=== PATIENT | female | born 1950 | race Hispanic/Latino ===

== ENCOUNTER → 2017-12-09 | Outpatient (CLI) | payer MEDICARE ==
--- NOTE | 2017-12-29 08:52 | Diagnostic Imaging Report ---
#[id number] - [id number] #BILATERAL DIGITAL SCREENING MAMMOGRAM WITH CAD: 12/09/2017 No prior exams were available for comparison. Current study contains 4 films. The tissue of both breasts is predominantly fatty. Current study was also evaluated with a Computer Aided Detection (CAD) system. There are benign calcifications in both breasts. There also are benign lymph nodes in both breasts. There is a mole marker on the left breast. No significant masses, calcifications, or other findings are seen in either breast. IMPRESSION: BENIGN There is no mammographic evidence of malignancy. A 1 year screening mammogram is recommended. The patient will be notified by letter of the results. Karel muller/jessi:12/28/2017 14:54:02 Suggestion Clerk: Janelle GAUTHIER)(M), [facility] letter sent: Normal Exam Mammogram BI-RADS: 2 Benign
== END ==
LOC: MAMMO 14:11
PROVIDERS: ATTEND Family Medicine
DX: Z12.31 Encounter for screening mammogram for malignant neoplasm of breast (principal)
CPT/HCPCS: 77067

== ENCOUNTER → 2019-10-18 | Outpatient (CLI) | payer MEDICARE, OTHER ==
--- NOTE | 2019-10-18 09:23 | Diagnostic Imaging Report ---
EXAM: US ABDOMEN COMPLETE DATE: 10/18/2019 8:32 AM INDICATION: Abdominal pain COMPARISON: None TECHNIQUE: Transverse and longitudinal morin scale and color doppler sonographic images of the upper abdomen were obtained. FINDINGS: LIVER 14.6 cm in the right midclavicular line. Increased echogenicity of the liver with normal contour, no masses. SPLEEN 11.5 cm in maximum diameter. Normal echogenicity, no masses. GALLBLADDER Multiple shadowing gallstones in the gallbladder. No gallbladder distention, wall thickening, or pericholecystic fluid. Gallbladder wall measures 3 mm. BILE DUCTS No intra nor extra-hepatic biliary dilation. Common bile duct measures 3mm PANCREAS: Visualized portions are normal. RIGHT KIDNEY: 10.6 cm Echogenicity: Normal Collecting System: No hydronephrosis Stones: None Cyst/Mass: None LEFT KIDNEY: 13.3 cm Echogenicity: Normal Collecting System: No hydronephrosis Stones: None Cyst/Mass: None VESSELS: Aorta: Visualized portions are within normal size limits Inferior Vena Cava: Visualized portions are normal Main Portal Vein: 1.1 cm, normal size with hepatopetal flow. FREE FLUID: None IMPRESSION: Cholelithiasis without sonographic evidence of cholecystitis. Diffuse hepatic steatosis. Signed by: Kathy Montano MD on 10/18/2019 9:20 AM
== END ==
LOC: US 08:02
PROVIDERS: ATTEND Family Medicine
DX: R10.9 Unspecified abdominal pain (principal); K80.20 Calculus of gallbladder without cholecystitis without obstruction; K76.0 Fatty (change of) liver, not elsewhere classified
CPT/HCPCS: 76700

== ENCOUNTER → 2019-10-24 | Outpatient (CLI) | payer MEDICARE, OTHER ==
--- NOTE | 2019-10-24 18:54 | Diagnostic Imaging Report ---
Hepatobiliary Scan with Gallbladder Ejection Fraction Reason for exam: Abdominal pain Technique: Following intravenous administration of 6.7 millicuries of Tc-99m mebrofenin, dynamic images of the abdomen in the anterior projection were obtained through 48 minutes. Sincalide (CCK analog) 1.8 micrograms was administered intravenously over 30 minutes with additional imaging for determination of gallbladder ejection fraction. Discussion: Perfusion of the liver is normal. Extraction of tracer by the liver parenchyma is normal. Tracer appears promptly within the biliary tract. The gallbladder begins to fill at 32 minutes post injection of tracer and fills adequately. Tracer is seen in the small bowel by 17 minutes. There is no contractile response by the gallbladder to the pharmacologic dose of sincalide. No emptying of the gallbladder occurs during the 30 minute infusion. Impression: 1. Filling of the gallbladder excludes acute cystic duct obstruction/acute cholecystitis. 2. The gallbladder ejection fraction is undefined as there is no emptying of the gallbladder during the infusion of sincalide. This absence of a contractile response to sincalide supports the clinical diagnosis of chronic cholecystitis/gallbladder dyskinesia. Signed by: Dr. Janelle Martin M.D. on 10/24/2019 6:51 PM
== END ==
LOC: NM 12:51
PROVIDERS: ATTEND Family Medicine
DX: R10.9 Unspecified abdominal pain (principal); K82.8 Other specified diseases of gallbladder
CPT/HCPCS: 78227; A9537

== ENCOUNTER → 2019-11-10 | Day surgery (SDC) | payer MEDICARE, OTHER ==
[2019-11-07 11:34] LABS: BASOPHILS % 0.3 % (0.0-1.0); HEMATOCRIT 41.7 % (34.2-44.1); HEMOGLOBIN 13.5 g/dL (12.0-16.0); LYMPHOCYTES # (AUTO) 1.5 (1.0-3.2); LYMPHOCYTES % 22.7 % (18.0-39.1); MEAN CORPUSCULAR HEMOGLOBIN 28.2 pg (28-32); MEAN CORPUSCULAR HGB CONC 32.4 g/dL (31-35); MEAN CORPUSCULAR VOLUME 87.2 fL (81-99); MONOCYTES # (AUTO) 0.4 (0.2-0.8); MONOCYTES % 6.7 % (4.4-11.3); NEUTROPHILS # (AUTO) 4.5 (2.1-6.9); NEUTROPHILS % 69.8 % (38.7-80.0); PLATELET COUNT 261 x10e3/uL (140-360); RED BLOOD COUNT 4.78 x10e6/uL (3.6-5.1); RED CELL DISTRIBUTION WIDTH 13.2 % (11.7-14.4)
[2019-11-07 11:52] LABS: ALANINE AMINOTRANSFERASE 15 IU/L (0-55); ALBUMIN 4.3 g/dL (3.5-5.0); ALBUMIN/GLOBULIN RATIO 1.3 (0.8-2.0); ALKALINE PHOSPHATASE 68 IU/L (40-150); ANION GAP 15.1 mmol/L (8-16); BLOOD UREA NITROGEN 9 mg/dL (7-26); BUN/CREATININE RATIO 14 (6-25); CALCIUM 9.5 mg/dL (8.4-10.2); CARBON DIOXIDE 24 mmol/L (22-29); CHLORIDE 106 mmol/L (98-107); CREATININE, SERUM 0.64 mg/dL (0.57-1.11); EST GLOMERULAR FILTRATION RATE > 60 ML/MIN (60-); GLUCOSE 119 mg/dL (74-118); POTASSIUM 4.1 mmol/L (3.5-5.1); SODIUM 141 mmol/L (136-145)
--- NOTE | 2019-11-07 12:46 | Diagnostic Imaging Report ---
Exam: CHEST 2 VIEWS Date: 11/07/2019 12:41 PM INDICATION: ^[id number] ^1213 ^PRE OP Comparison: None FINDINGS: Lines/Tubes:None Lungs:The lungs are well inflated. No focal consolidation or pulmonary edema. Pleura:No pleural effusion. No pneumothorax. Heart/Mediastinum:The cardiomediastinal silhouette is normal in size and contour. Bones/Soft Tissues: No acute osseous abnormality. Moderate to severe multilevel degenerative changes of the midthoracic spine are noted. Upper abdomen: Unremarkable. IMPRESSION: Negative for acute intrathoracic process. Signed by: Mik Bone MD on 11/07/2019 12:43 PM
[~2019-11-10] MED LIST: AMLODIPINE BESY10 MG PO; BUPIVACAINE 0.25% 30ML SDV INJ ONE; CARVEDILOL3.125 MG PO; CEFAZOLIN SOD 1 GM VIAL ONE; CRESTOR10 MG PO; DEXAMETHASONE SOD PHOS INJ 4 MG/ML VIAL ONE; FENTANYL CITRATE/PF 100MCG/2 ML INJ ONE; GLIPIZIDE ER5 MG PO; GLYCOPYRROLATE INJ 0.2 MG/ML VIAL ONE; HYDRALAZINE HCL25 MG PO; HYDROGEN PEROXIDE 120 ML BTL ONE; KETOROLAC TROMETHAMINE 30 MG/ML VIAL ONE; LABETALOL HCL 5 MG/ML 20ML VIAL ONE; LIDOCAINE 1% W/EPINEPHRINE 20 ML VIAL ONE; LIDOCAINE HCL 2% LOCAL INJ 5 ML SDV VIAL INJ ONE; LOSARTAN POTAS100 MG PO; MEPERIDINE HCL INJ 25 MG/ML VIAL ONE; METFORMIN HCL500 MG PO; MIDAZOLAM HCL 2 MG/2 ML VIAL ONE; NEOSTIGMINE 1 MG/ML 10ML VIAL ONE; OMEPRAZOLE40 MG PO; ONDANSETRON HCL INJ 2MG/ML 2ML 2 MG/ML VIAL ONE; PROPOFOL IV EMULSION 10 MG/ML 20 ML VIAL ONE; ROCURONIUM BROMIDE 10 MG/ML 5ML VIAL IV ONE; SERTRALINE HCL50 MG PO; SEVOFLURANE INHAL SOLN 250 ML PEN BTL ONE; ULTRACET TABLE1 EACH PO; ZOFRAN4 MG SL
--- NOTE | 2019-11-10 12:55 | Operative Report ---
DATE OF PROCEDURE: 11/10/2019 SURGEON: Tony Peters MD PREOPERATIVE DIAGNOSES: Cholelithiasis, chronic cystitis. POSTOPERATIVE DIAGNOSES: Cholelithiasis, chronic cystitis. PROCEDURE PERFORMED: Laparoscopic cholecystectomy. FISHER DIVING: LEXY Dangelo. ESTIMATED BLOOD LOSS: Minimal. DRAINS: None. COMPLICATIONS: None. INDICATION AND FINDINGS: A 69-year-old female, who has been complaining of fatty food intolerance for several weeks. She has gallstones and a zero ejection fraction. Liver function tests were normal. There was no history of jaundice. INTRAOPERATIVE FINDINGS: Cholelithiasis, chronic cholecystitis. No ductal dilatation. DESCRIPTION OF PROCEDURE: With the patient lying on the operative table in the supine position after administration of general anesthesia, she was prepped and draped for laparoscopic cholecystectomy. The procedure was begun by establishing the pneumoperitoneum in the right upper quadrant midclavicular line because of previous . Pneumoperitoneum was insufflated to 15 mm of pressure and then the 5 mm camera was placed in that location. Under direct vision, we placed a 10/11 trocar in the umbilical port and then a subxiphoid port using 10/11 trocar was placed and then a right anterior axillary line trocar 5 mm size, which was also placed. The gallbladder was then retracted cephalad. Adhesions to the right upper quadrant and gallbladder were sharply lysed, exposing the gallbladder in the hepatoduodenal ligament in the neck. The cystic duct was identified, traced down to the common bile duct junction, which was in 360 degrees circumferentially. After we did that, we identified the cystic artery and transected it between titanium clips also. Then, we took down the gallbladder from the liver bed using electrocautery dissection. Bleeding points were cauterized as they were encountered. The gallbladder was detached and removed through the umbilical port. There was some bleeding coming from the subxiphoid port dripping blood and at this point, we went ahead and enlarged the subxiphoid incision and then cauterized the muscular bleeder and then we closed the wound with 3 interrupted 0 Vicryl to further reinforce the bleeder and the bleeder controlled. After we did that, we placed an extra 5 mm trocar in the left upper quadrant and then reinspected the operative field. There was absolutely no bleeding. Everything was dry. We placed some Surgicel in the gallbladder bed fossa. After we irrigated the right upper quadrant to ascertain that there was no bleeding and no bowel injury, we released the pneumoperitoneum and then closed the umbilical fascia with 0 Vicryl. The subcutaneous tissue was closed using 0 Vicryl also and the skin of all the ports was using fidelina and they were all infiltrated with 0.25% Marcaine with epinephrine. Sterile dressing was applied. The patient tolerated the procedure well and taken to recovery room in stable condition. MD ISIDRO Rviera/MODL /[id number]
[2019-11-10 14:05] VITALS: BP 127/77
== END | disposition home or self-care (01) ==
LOC: OR 07:00
PROVIDERS: ATTEND Surgery
DX: K80.10 Calculus of gallbladder with chronic cholecystitis without obstruction (principal); K82.8 Other specified diseases of gallbladder; E66.9 Obesity, unspecified; E11.9 Type 2 diabetes mellitus without complications; I10 Essential (primary) hypertension; E78.5 Hyperlipidemia, unspecified; M54.9 Dorsalgia, unspecified; M19.90 Unspecified osteoarthritis, unspecified site; K21.9 Gastro-esophageal reflux disease without esophagitis; K44.9 Diaphragmatic hernia without obstruction or gangrene; I49.9 Cardiac arrhythmia, unspecified; F41.9 Anxiety disorder, unspecified; Z88.2 Allergy status to sulfonamides; Z01.810 Encounter for preprocedural cardiovascular examination; Z01.812 Encounter for preprocedural laboratory examination; Z01.818 Encounter for other preprocedural examination; Z11.59 Encounter for screening for other viral diseases; Z79.84 Long term (current) use of oral hypoglycemic drugs
CPT/HCPCS: 36415 ×2; 47562; 71046; 80053; 82948; 85025; 88304; 93005; C1766; J0690; J1100; J1885; J2001; J2175; J2405; J2704; J2710; J3490; U0002; J2250; J3010

== ENCOUNTER 2019-11-17 12:42 | Emergency (ER) | payer MEDICARE, OTHER ==
[~2019-11-17] VITALS: Ht 162.6 cm; Wt 108.9 kg
[~2019-11-17 12:42] MED LIST changes: -BUPIVACAINE 0.25% 30ML SDV INJ ONE; -CEFAZOLIN SOD 1 GM VIAL ONE; -DEXAMETHASONE SOD PHOS INJ 4 MG/ML VIAL ONE; -FENTANYL CITRATE/PF 100MCG/2 ML INJ ONE; -GLYCOPYRROLATE INJ 0.2 MG/ML VIAL ONE; -HYDROGEN PEROXIDE 120 ML BTL ONE; -KETOROLAC TROMETHAMINE 30 MG/ML VIAL ONE; -LABETALOL HCL 5 MG/ML 20ML VIAL ONE; -LIDOCAINE 1% W/EPINEPHRINE 20 ML VIAL ONE; -LIDOCAINE HCL 2% LOCAL INJ 5 ML SDV VIAL INJ ONE; -MEPERIDINE HCL INJ 25 MG/ML VIAL ONE; -MIDAZOLAM HCL 2 MG/2 ML VIAL ONE; -NEOSTIGMINE 1 MG/ML 10ML VIAL ONE; -ONDANSETRON HCL INJ 2MG/ML 2ML 2 MG/ML VIAL ONE; -PROPOFOL IV EMULSION 10 MG/ML 20 ML VIAL ONE; -ROCURONIUM BROMIDE 10 MG/ML 5ML VIAL IV ONE; -SEVOFLURANE INHAL SOLN 250 ML PEN BTL ONE; -ULTRACET TABLE1 EACH PO; -ZOFRAN4 MG SL
--- NOTE | 2019-11-17 12:50 | NUR ---
called to back and just keep doing paperwork per pt son, told to wait.
[2019-11-17] MEDS ORDERED: ONDANSETRON HCL 4 MG ORAL DISINTEGRATING TAB PO ONE (13:15)
[2019-11-17] MEDS ORDERED: HYDROCODONE/APAP 5MG-325MG TAB PO ONE (13:15)
--- NOTE | 2019-11-17 13:27 | NUR ---
ULTRASOUND ON WAY
[2019-11-17] MEDS ORDERED: HYDROCODONE/APAP 5MG-325MG TAB ONE (13:35)
[2019-11-17] MEDS ORDERED: ONDANSETRON HCL 4 MG ORAL DISINTEGRATING TAB ONE (13:35)
[2019-11-17] MEDS ORDERED: ULTRACET TABLE1 EACH PO (13:38)
[2019-11-17] MEDS ORDERED: ZOFRAN4 MG SL (13:38)
--- NOTE | 2019-11-17 13:38 | Emergency Department Note ---
History of Present Illnes History of Present Illness Chief Complaint: Extremity Trauma/Pain History of Present Illness This is a 69 year old female c/o right upper arm pain for 2 days, s/p lap/luis m by Dr Sameer Peters few days ago. She saw Dr Sameer Peters and was told that the pain has no thing to do with the surgeries and sent her to ER for eval. Pt has FROM on her right shoulder, muscle very tender to touch on upper arm near the shoulder . Historian: Patient, Family Member Arrival Mode: Car Hamper Maker Required: No Onset (how long ago): day(s) Radiation: Reports extremity Severity: moderate Onset quality: gradual Duration (how long): day(s) Timing of current episode: constant Progression: worsening Context: Reports recent surgery Relieving factors: immobilization Exacerbating factors: movement Associated symptoms: Reports denies other symptoms, Reports other Treatments prior to arrival: none Past Medical/Family History Physician Review I have reviewed the patient's past medical and family history. Any updates have been documented here. Past Medical History Recent Fever: No Clinical Suspicion of Infectio: No New/Unexplained Change in Ment: No Past Medical History: Hypertension, Diabetes, GERD, Hyperlipedemia Other Medical History: MORBID OBESITY Past Surgical History: Cholecysctectomy Social History Smoking Cessation: Never Smoker Counseling Performed: No Alcohol Use: None Any Illegal Drug Use: No Physically hurt or threatened: No Other Any Pre-Existing Lines (PICC,: No Review of Systems Review of Systems Constitutional: Reports no symptoms EENTM: Reports no symptoms Cardiovascular: Reports no symptoms Respiratory: Reports no symptoms Gastrointestinal: Reports no symptoms Genitourinary: Reports no symptoms Musculoskeletal: Reports as per HPI Integumentary: Reports no symptoms Neurological: Reports no symptoms Psychological: Reports no symptoms Endocrine: Reports no symptoms Hematological/Lymphatic: Reports no symptoms Physical Exam Related Data Allergies: Coded Allergies: Sulfa (Sulfonamide Antibiotics) (Verified Allergy, Intermediate, 11/07/19) RASH ibuprofen (Verified Adverse Reaction, Unknown, 11/17/19) "RAISES MY BLOOD PRESSURE." Triage Vital Signs Vital Signs Date Time Temp Pulse Resp B/P (MAP) Pulse Ox O2 Delivery O2 Flow Rate FiO2 11/17/19 12:50 97.9 73 18 134/67 97 Room Air Vital signs reviewed: Yes Physical Exam CONSTITUTIONAL Constitutional: Present well-developed, Present well-nourished HENT HENT: Present normocephalic, Present atraumatic, Present oropharynx clear/moist, Present nose normal HENT L/R: Present left ext ear normal, Present right ext ear normal EYES Eyes: Reports PERRL, Reports conjunctivae normal NECK Neck: Present ROM normal PULMONARY Pulmonary: Present effort normal, Present breath sounds normal CARDIOVASCULAR Cardiovascular: Present regular rhythm, Present heart sounds normal, Present capillary refill normal, Present normal rate GASTROINTESTINAL Abdominal: Present soft, Present nontender, Present bowel sounds normal GENITOURINARY Genitourinary: Present exam deferred SKIN Skin: Present warm, Present dry MUSCULOSKELETAL Musculoskeletal: Present ROM normal, Present tenderness, Present other (no swelling, tender right upper arm, proximal shoulder) NEUROLOGICAL Neurological: Present alert, Present oriented x 3, Present no gross motor or sensory deficits PSYCHOLOGICAL Psychological: Present mood/affect normal, Present judgement normal Results Imaging Imaging results reviewed: Yes Impressions no Acute, c/w DJD Assessment & Plan Medical Decision Making MDM musculoskeletal pain Assessment & Plan Final Impression: (1) Acute pain of right shoulder Depart Disposition: HOME, SELF-CARE Last Vital Signs Date Time Temp Pulse Resp B/P (MAP) Pulse Ox O2 Delivery O2 Flow Rate FiO2 11/17/19 12:50 97.9 73 18 134/67 97 Room Air Home Meds Active Scripts Ondansetron Hcl* (ZOFRAN*) 4 Mg Tablet, 4 MG SL Q6H PRN for NAUSEA, #14 MG 0 Refills Prov:BEBA JARAMILLO MD 11/17/19 Tramadol Hcl/Acetaminophen (ULTRACET TABLET) 1 Each Tablet, 1 TAB PO Q6H for pain, #30 0 Refills Prov:BEBA JARAMILLO MD 11/17/19 Reported Medications Carvedilol (CARVEDILOL) 3.125 Mg Tablet, 3.125 MG PO BID, #60 TAB 11/07/19 Sertraline Hcl (SERTRALINE HCL) 50 Mg Tablet, 50 MG PO DAILY, #30 TAB 11/07/19 Omeprazole (OMEPRAZOLE) 40 Mg Capsule.dr, 40 MG PO DAILY 11/07/19 Rosuvastatin Calcium (CRESTOR) 10 Mg Tab, 20 MG PO DAILY THERAPEUTICALLY SUBSTITUTED WITH SIMVASTATIN 40MG 11/07/19 Hydralazine Hcl (HYDRALAZINE HCL) 25 Mg Tab, 25 MG PO BID, TAB 11/07/19 Amlodipine Besylate (AMLODIPINE BESYLATE) 10 Mg Tablet, 10 MG PO DAILY, #30 TAB 11/07/19 Glipizide (GLIPIZIDE ER) 5 Mg Tab.er.24, PO DAILY 11/07/19 Metformin Hcl (METFORMIN HCL) 500 Mg Tablet, 1000 MG PO BID, #60 TAB 11/07/19 Losartan Potassium (LOSARTAN POTASSIUM) 100 Mg Tablet, 100 MG PO HS, TAB 11/07/19 Medications in the ED Acetaminophen/ Hydrocodone Bitart 2 ea ONCE ONCE PO ; Start 11/17/19 at 13:15; Stop 11/17/19 at 13:16; Status DC Ondansetron HCl 4 mg ONCE ONCE PO ; Start 11/17/19 at 13:15; Stop 11/17/19 at 13:16; Status DC Ondansetron HCl 4 mg STK-MED ONCE .ROUTE ; Start 11/17/19 at 13:35; Stop 11/17/19 at 13:29; Status DC Acetaminophen/ Hydrocodone Bitart 2 ea STK-MED ONCE .ROUTE ; Start 11/17/19 at 13:35; Stop 11/17/19 at 13:29; Status DC BEBA JARAMILLO MD Nov 17, 2019 13:38
--- NOTE | 2019-11-17 13:52 | NUR ---
ROTARY CUTTER FEEDER COMPUTER USED TO EXPLAIN MEDS AND UPDATE PT. #[id number]
--- NOTE | 2019-11-17 13:52 | Diagnostic Imaging Report ---
Radiographs of the right shoulder - HISTORY: Pain COMPARISON: None available. FINDINGS: Bones: No acute displaced fracture. Osseous alignment is within normal limits. Joints: Scattered degenerative change. No osseous erosion. Soft tissues: The soft tissues appear unremarkable. IMPRESSION: Scattered degenerative change. No osseous erosion. Signed by: Dr. Benson Meyer M.D. on 11/17/2019 1:49 PM
--- NOTE | 2019-11-17 15:16 | Diagnostic Imaging Report ---
HISTORY : Right approximately pain and swelling COMMENT : Ultrasound examination of the right upper extremity was performed. There are no prior films available for comparison. Grayscale, color and spectral Doppler scans demonstrate a normal grayscale appearance with color flow identified in the right internal jugular, subclavian, axillary, brachial, cephalic and basilic veins. There are no findings to suggest acute deep venous thrombosis. IMPRESSION: No evidence of right upper extremity deep venous thrombosis. Signed by: Mik Bone MD on 11/17/2019 3:13 PM
--- OUTSIDE RECORDS SUMMARY | 2019-11-19 16:19 | XMS REPORT | Continuity of Care Document ---
Author Author [facility] t Organization [facility] Address [address] [place] [address] Phone Unavailable Care Team Providers Care Marine Reporter Name Role Phone GANGA NEWELL PCP Hussain JARAMILLO Attphys Unavailable CASPER VIRK Attphys Unavailable Tootie NEWELL MD Attphyzena Unavailable Payers Payer Name Policy Type Policy Number Effective Date Expiration Date [facility] [id number] 2019 00:00:00 [facility] [id number] 2019 00:00 :00 [facility] Problems Condition Name Condition Details Condition Category Status Onset Date Resolution Date Last Treatment Date Treating Clinician Comments Source Acute pain of right shoulder Problem Active [facility] Allergies, Adverse Reactions, Alerts Allergy Name Allergy Type Status Severity Reaction(s) Onset Date Inacti ve Date Treating Clinician Comments Source Ibuprofen Propensity to adverse reactions Active 2019-11-17 00:00:00 [facility] Sulfa (Sulfonamide Antibiotics) Allergy to substance Active Moder ate 2019-11-07 00:00:00 [facility] Sulfa (Sulfonamide Antibiotics) DA Active [place] 2018-07-01 00 :00:00 [facility] Sulfa (Sulfonamide Antibiotics) DA Active U 2017-11-12 00 :00:00 [facility] Social History Social Habit Start Date Stop Date Quantity Comments Source Sex Assigned At 1950 00:00:00 1950 00:00:00 Female [facility] Medications Ordered Medication Name Filled Medication Name Start Date Stop Da te Current Medication? Ordering Clinician Indication Dosage Frequency Signature (SIG) Comments Components Source Ondansetron Hcl (Zofran*) 4 Mg TABLET Ondansetron Hcl (Zofra n*) 4 Mg TABLET 2019-11-17 13:38:00 Yes 4 Every 6 Hours as n eeded for Nausea [facility] Tramadol Hcl/Acetaminophen (Ultracet Tablet) 1 Each TA BLET Tramadol Hcl/Acetaminophen (Ultracet Tablet) 1 Each TABLET 2019-11-17 13:38:00 Yes 1 Every 6 Hours for Pain [facility] Amlodipine Besylate Amlodipine Besylate Yes 10 Daily [facility] Carvedilol Carvedilol Yes 3.125 Twice A Day [facility] Glipizide (Glipizide Er) 5 Mg TAB.ER.24 Glipizide (Glipizide Er) 5 Mg TAB.ER.24 Yes Daily [facility] Hydralazine Hcl Hydralazine Hcl Yes 25 Twice A Day [facility] Losartan Potassium Losartan Potassium Yes 100 Be dtime [facility] Metformin Hcl Metformin Hcl Yes 1000 Twice A Day [facility] Omeprazole Omeprazole Yes 40 Daily [facility] Rosuvastatin Calcium (Crestor) 10 Mg TAB Rosuvastatin Calcium (Crestor) 10 Mg TAB Yes 20 Daily [facility] Sertraline Hcl Sertraline Hcl Yes 50 Daily [facility] Vital Signs Vital Name Observation Time Observation Value Comments Source Weight 2019-11-17 12:50:00 240 [lb_av] [facility] BMI (Body Mass Index) 2019-11-17 12:50:00 41.2 kg/m2 [facility] Body Temperature 2019-11-10 12:16:00 98.0 [degF] [facility] Procedures Procedure Date / Time Performed Performing Clinician Payal van LAPAROSCOPIC CHOLECYSTECTOMY 2019-11-10 00:00:00 [facility] X-ray of chest, two views 2019-11-07 00:00:00 [facility] US abdomen complete 2019-10-18 00:00:00 [facility] Plan of Care Planned Activity Planned Date Details Comments Source Instructions Bursitis - Shoulder [facility] Encounters Start Date/Time End Date/Time Encounter Type Admission Type [facility] Care Department Encounter ID Source 2019-11-17 12:45:00 2019-11-17 15:15:00 [id number] 2019-11-10 07:00:00 2019-11-10 07:00:00 Registered Surgical Day Car e CASPER HOWARD [facility] [id number] [facility] 2019-10-24 12:51:00 2019-10-24 12:51:00 Registered Clinic 3 REECE MILIAN [facility] [id number] [facility] 2019-10-18 08:02:00 2019-10-18 08:02:00 Registered Clinic 3 REECE MILIAN [facility] [id number] [facility] 2019-02-28 09:04:00 2019-02-28 09:04:00 Registered Clinic 3 REECE [facility] [id number] [facility] Results Test Description Test Time Test Comments Results Result Comments Source US EXREMEITY VEINS UNI-HOPD 2019-11-17 15:11:00 [facility] [address] [place] [address] Patient Name: ALVA LIT JOSE MR #: [id number] : 1950 Age/Sex: 69/F Req #: [id number] Adm Physician: Ordered by: BEBA JARAMILLO MD Report #: [id number] Location: [facility] Room/Bed: Procedure: HOPD/ EXREMEITY VEINS UNI-HOPD Exam Date: Exam Time: REPORT STATUS: Signed HISTORY : Right approximately pain and swelling COMMENT : Ultrasound examination of the right upper extremity was performed. There are no prior films available for comparison. Grayscale, color and spectral Doppler scans demonstrate a normal grayscale appearance with color flow identified in the right internal jugular, subclavian, axillary, brachial, cephalic and basilic veins. There are no findings to suggest acute deep venous thrombosis. IMPRESSION: No evidence of right upper extremity deep venous thrombosis. Signed by: Smita Bone MD on 11/17/2019 3:13 PM Dictated By: SMITA BONE MD 12 Transcribed By: JONATHON on 11/17/191512 COPY TO: BEBA JARAMILLO MD SHOULDER 2+VW RT - HOPD 2019-11-17 13:48:00 [place] [address] Patient Name: LIT RESENDIZ MR #: [id number] : 1950 Age/Sex: 69/F Req #: [id number] Adm Physician: Ordered by: BEBA JARAMILLO MD Report #: [id number] Location: [facility] Room/Bed: Procedure: [id number] HOPD/SHOULDER 2+VW RT - HOPD Exam Date: Exam Time: REPORT STATUS: Signed Radiographs of the right shoulder - HISTORY: Pain COMPARISON: None available. FINDINGS: Bones: No acute displaced fracture. Osseous alignment is within normal limits. Joints: Scattered degenerative change. No osseous erosion. Soft tissues: The soft tissues appear unremarkable. IMPRESSION: Scattered degenerative change. No osseous erosion. Signed by: Dr. Marty Meyer M.D. on 11/17/2019 1:49 PM Dictated By: MARTY MEYER MD, MD 48 Transcribed By: JONATHON on 11/17/19 1349 COPY TO: BEBA JARAMILLO MD Capillary blood glucose measurement by glucometer (mas s/volume) 2019-11-10 07:37:00 Test Item Bedside Glucose (test code = 97206-0) 143 70-120 Meter ID: [id number] less than one hour [id number] 12:46:00* Test Item Value Reference Range Interpretation Comments Coronavirus (PCR) (test code = Coronavirus (PCR)) NOT DETECTED NOTD ETECTED SARS-CoV-2 PCRHologic Aptima SARS-CoV-2 assay is a nucleic amplification test in tended for the qualitative detection of RNA from SARS-CoV-2 from nasopharyngeal (FARM CONSULTANT) specimens. It is used under Emergency Use Authorization (EUA) by FDA.A posi tive result is indicative of the presence of SARS-CoV-2 RNA. Clinical correlatio n with patient history and other diagnostic information is necessary to determin e patient infection status.A negative (Not Detected) result does not preclude SA RS-CoV-2 infection. Clinical Correlation with patient history and other diagnost ic information should be used in patient management decisions.Invalid: Unable to generate a valid result on this specimen. Please submit a new specimen for repr at testing oc clinically indicated.Tesing performed by:[facility] [[email or web address]] Laboratory Services[address] [place] [address] [id number], Reece gaines MD, PhDBaylor [facility] & [facility] 2 [id number] 12:41:00 [facility] [address] [place] [address] Patient Name: LIT RESENDIZ MR #: [id number] : 1950 Age/Sex: 69/F Req #: [id number] Adm Physician: Ordered by: CASPER VIRK MD Report #: [id number] Location: OR Room/Bed: Procedure: [id number] DX/CHEST 2 VIEWS Exam Date: 11/07/19 Exam Time: 121 3 REPORT STATUS: Signed Exam: EST 2 VIEWS Date: 11/07/2019 12:41 PM INDICATION: [id number] PRE OP Comparison: None FINDINGS: Lines/Tubes:None Lungs:The lungs are well inflated. No focal consolidation or pulmonary edema. Pleura :No pleural effusion. No pneumothorax. Heart/Mediastinum:The cardiomediasti nal silhouette is normal in size and contour. Bones/Soft Tissues: No acut e osseous abnormality. Moderate to severe multilevel degenerative changes of t he midthoracic spine are noted. Upper abdomen: Unremarkable. IMPRES PITO: Negative for acute intrathoracic process. Signed by: Tal Holland on 11/07/2019 12:43 PM Dictated By: SMITA BONE MD Electronically Sig lashanda By: SMITA BONE MD on 11/07/19 1243 Transcribed By: JONATHON on 11/07/19 1 243 COPY TO: CASPER VIRK MD Blood leukocytes automated count (number/volume)2019-11-07 11:27:00* Test Item Value Reference Range Interpretation Comments White Blood Count (test code = 6690-2) 6.39 4.8-10.8 [facility] erythrocytes automated count (number/volume)2019-11-07 11:27:00* Test Item Value Reference Range Interpretation Comments Red Blood Count (test code = 789-8) 4.78 3.6-5.1 [facility] hemoglobin measurement (moles/volume)2019-11-07 11:27:00* Test Item Value Reference Range Interpretation Comments Hemoglobin (test code = 97879-7) 13.5 12.0-16.0 [facility] HospitalAutomated blood hematocrit (volume fraction)2019-11-07 11:27:00* Test Item Value Reference Range Interpretation Comments Hematocrit (test code = 4544-3) 41.7 34.2-44.1 [facility] HospitalAutomated erythrocyte mean corpuscular pfksru3467-48-80 11:27:00* Test Item Value Reference Range Interpretation Comments Mean Corpuscular Volume (test code = 787-2) 87.2 81-99 [facility] HospitalAutomated erythrocyte mean corpuscular hemoglobin (mass per erythrocyte)2019-11-07 11:27:00* Test Item Value Reference Range Interpretation Comments Mean Corpuscular Hemoglobin (test code = 785-6) 28.2 28-32 [facility] HospitalAutomated erythrocyte mean corpuscular hemoglobin concentration measurement (mass/volume)2019-11-07 11:27:00* Test Item Value Reference Range Interpretation Comments Mean Corpuscular Hemoglobin Concent (test code = 786-4) 32.4 31-35 [facility] HospitalRDW WgaIh-Fcd1555-57-15 11:27:00* Test Item Value Reference Range Interpretation Comments Red Cell Distribution Width (test code = 04863-0) 13.2 11.7 -14.4 [facility] HospitalAutomated blood platelet count (count/volume)2019-11-07 11:27:00* Test Item Value Reference Range Interpretation Comments Platelet Count (test code = 777-3) 261 140-360 [facility] HospitalAutomated blood segmented neutrophil count as percentage of total otjntkybxk2365-62-74 11:27:00* Test Item Value Reference Range Interpretation Comments Neutrophils (%) (Auto) (test code = 12734-1) 69.8 38.7-80.0 [facility] HospitalAutomated blood lymphocyte count as percentage ot total etzjjoqddq7006-26-62 11:27:00* Test Item Value Reference Range Interpretation Comments Lymphocytes (%) (Auto) (test code = 736-9) 22.7 18.0-39.1 [facility] HospitalAutomated blood monocyte count as percentage of total ooczieuxtg1696-70-19 11:27:00* Test Item Value Reference Range Interpretation Comments Monocytes (%) (Auto) (test code = 5905-5) 6.7 4.4-11.3 [facility] HospitalAutomated blood eosinophil count as percentage of total alwrsakioa5015-90-21 11:27:00* Test Item Value Reference Range Interpretation Comments Eosinophils (%) (Auto) (test code = 713-8) 0.0 0.0-6.0 [facility] HospitalAutomated blood basophil count as percentage of total jsbegmjgff4564-57-59 11:27:00* Test Item Value Reference Range Interpretation Comments Basophils (%) (Auto) (test code = 706-2) 0.3 0.0-1.0 [facility] HospitalFluoroscopic procedure less than one hour nvehmjjs1407-17-56 11:27:00* Test Item Value Reference Range Interpretation Comments IM GRANULOCYTES % (test code = IM GRANULOCYTES %) 0.5 0.0- 1.0 [facility] HospitalAutomated blood neutrophil count 2019-11-07 11:27:00* Test Item Value Reference Range Interpretation Comments Neutrophils # (Auto) (test code = 751-8) 4.5 2.1-6.9 [facility] HospitalBlood lymphocytes count (number/volume) 2019-11-07 11:27:00* Test Item Value Reference Range Interpretation Comments Lymphocytes # (Auto) (test code = 44289-5) 1.5 1.0-3.2 [facility] HospitalBlood monocytes automated count (number/volume)2019-11-07 11:27:00* Test Item Value Reference Range Interpretation Comments Monocytes # (Auto) (test code = 742-7) 0.4 0.2-0.8 [facility] HospitalAutomated blood eosinophil count 2019-11-07 11:27:00* Test Item Value Reference Range Interpretation Comments Eosinophils # (Auto) (test code = 711-2) 0.0 0.0-0.4 [facility] HospitalAutomated blood basophil count (count/volume)2019-11-07 11:27:00* Test Item Value Reference Range Interpretation Comments Basophils # (Auto) (test code = 704-7) 0.0 0.0-0.1 [facility] HospitalFluoroscopic procedure less than one hour jmyibdci4962-02-94 11:27:00* Test Item Value Reference Range Interpretation Comments Absolute Immature Granulocyte (auto (cheng t code = Absolute Immature Granulocyte (auto) 0.03 0-0.1 [facility] sodium measurement (moles/volume)2019-11-07 11:27:00* Test Item Value Reference Range Interpretation Comments Sodium Level (test code = 2951-2) 141 136-145 [facility] potassium measurement (moles/volume)2019-11-07 11:27:00* Test Item Value Reference Range Interpretation Comments Potassium Level (test code = 2823-3) 4.1 3.5-5.1 [facility] chloride measurement (moles/volume)2019-11-07 11:27:00* Test Item Value Reference Range Interpretation Comments Chloride Level (test code = 2075-0) 106 98-107 [facility] plasma carbon dioxide, total measurement (moles/volume)2019-11-07 11:27:00* Test Item Value Reference Range Interpretation Comments Carbon Dioxide Level (test code = 2028-9) 24 22-29 [facility] plasma anion kzw5325-16-26 11:27:00* Test Item Value Reference Range Interpretation Comments Anion Gap (test code = 36455-8) 15.1 8-16 [facility] urea nitrogen measurement (mass/volume)2019-11-07 11:27:00* Test Item Value Reference Range Interpretation Comments Blood Urea Nitrogen (test code = 3094-0) 9 7-26 [facility] creatinine measurement (mass/volume)2019-11-07 11:27:00* Test Item Value Reference Range Interpretation Comments Creatinine (test code = 2160-0) 0.64 0.57-1.11 [facility] plasma urea nitrogen/creatinine mass fsgky9815-98-39 11:27:00* Test Item Value Reference Range Interpretation Comments BUN/Creatinine Ratio (test code = 3097-3) 14 6-25 [facility] HospitalEstimated glomerular filtration rate (GFR) dlvnsedxrusvg9145-42-30 11:27:00* Test Item Value Reference Range Interpretation Comments Estimat Glomerular Filtration Rate (test code = 639480500) > 60 >60 Ranges were taken from the National Kidney Disease Education Program and the [facility] [employer] literature.Reference ranges:60 or greater: Sfgyqy06-13 ( for 3 consecutive months): Chronic kidney disease 15 or less: Kidney failureFormerly [facility] HospitalGlucose lwlgsjlldmm7495-41-73 11:27:00* Test Item Value Reference Range Interpretation Comments Glucose Level (test code = EDF0352) 119 74-118 [facility] plasma calcium measurement (mass/volume)2019-11-07 11:27:00* Test Item Value Reference Range Interpretation Comments Calcium Level (test code = 85276-0) 9.5 8.4-10.2 [facility] plasma total bilirubin measurement (mass/volume)2019-11-07 11:27:00* Test Item Value Reference Range Interpretation Comments Total Bilirubin (test code = 1975-2) 0.5 0.2-1.2 [facility] HospitalFluoroscopic procedure less than one hour ezlftdxq9240-58-68 11:27:00* Test Item Value Reference Range Interpretation Comments Aspartate Amino Transf (AST/SGOT) (test code = Aspartate Amino Transf (AST/SGOT)) 16 5-34 [facility]er[facility] or plasma alanine aminotransferase measurement (enzymatic activity/volume)2019-11-07 11:27:00* Test Item Value Reference Range Interpretation Comments Alanine Aminotransferase (ALT/SGPT) (test code = 1742-6) 15 0-55 [facility] or plasma protein measurement (mass/volume)2019-11-07 11:27:00* Test Item Value Reference Range Interpretation Comments Total Protein (test code = 2885-2) 7.5 6.5-8.1 [facility] plasma albumin measurement (mass/volume)2019-11-07 11:27:00* Test Item Value Reference Range Interpretation Comments Albumin (test code = 1751-7) 4.3 3.5-5.0 [facility] HospitalPlasma globulin measurement (mass/volume) 2019-11-07 11:27:00* Test Item Value Reference Range Interpretation Comments Globulin (test code = 44781-2) 3.2 2.3-3.5 [facility] plasma albumin/globulin mass ayzxr4117-32-78 11:27:00* Test Item Value Reference Range Interpretation Comments Albumin/Globulin Ratio (test code = 1759-0) 1.3 0.8-2.0 [facility] plasma alkaline phosphatase measurement (enzymatic activity/volume)2019-11-07 11:27:00* Test Item Value Reference Range Interpretation Comments Alkaline Phosphatase (test code = 6768-6) 68 40-150 [facility] HospitalHEPTOBILIARY W [id number] 18:44:00 [facility] [address] [place] [address] Patient Name: ANTOINE RESENDIZ MR #: [id number] : [birth year] Age/Sex: 69/F Req #: [id number] Adm Physician: Ordered by: GANGA NEWELL MD, MD Report #: [id number] Location: [place] Room/Bed: Procedure: 3 NM/HEPTOBILIARY W PHARM Exam Date: 10/24/19 Exam T jorge: 1330 REPORT STATUS: Signed Hepatobiliary Scan with Gallbladder Ejection Fraction Reason for exam: Abdo dori pain Technique: Following intravenous administration of 6.7 millicuri es of Tc-99m mebrofenin, dynamic images of the abdomen in the anterior project ion were obtained through 48 minutes. Sincalide (CCK analog) 1.8 micrograms w as administered intravenously over 30 minutes with additional imaging for de termination of gallbladder ejection fraction. Discussion: Perfusion of the liver is normal. Extraction of tracer by the liver parenchyma is normal. Tra cer appears promptly within the biliary tract. The gallbladder begins to fill at 32 minutes post injection of tracer and fills adequately. Tracer is seen in the small bowel by 17 minutes. There is no contractile response by the gal lbladder to the pharmacologic dose of sincalide. No emptying of the gallbladd er occurs during the 30 minute infusion. Impression: 1. Filling of the gallbladder excludes acute cystic duct obstruction/acute cholecystitis. 2. The gallbladder ejection fraction is undefined as there is no emptying of the gallbladder during the infusion of sincalide. This absence of a contract ile response to sincalide supports the clinical diagnosis of chronic cholecyst itis/gallbladder dyskinesia. Signed by: Dr. Nate Martin M.D. on 10/24/2019 6 :51 PM Dictated By: NATE MARTIN MD 50 Transcribed By: JONATHON on 10/24/191850 COPY TO: GANGA NEWELL ABDOMEN ZLHKGJLI8221-73-55 09:18:00 [place] [address] Patient Name: LIT RESENDIZ MR #: [id number] : [birth year] Age/Sex: 69/F Req #: [id number] [facility] Physician: Ordered by: REECE MILIAN, GANGA Sommers MD Report #: [id number] Location: Room/Bed: Procedure: [id number] US/US ABDOMEN COMPLETE Exam Date: Exam Time: REPORT STATUS: Signed EXAM: US ABDO MEN COMPLETE DATE: 10/18/2019 8:32 AM INDICATION: Abdominal pain COMPAR FADY: None TECHNIQUE: Transverse and longitudinal morin scale and color dopple r sonographic images of the upper abdomen were obtained. FINDINGS: LIVER 14.6 cm in the right midclavicular line. Increased echogenicity o f the liver with normal contour, no masses. SPLEEN 11.5 cm in maximum delvis meter. Normal echogenicity, no masses. GALLBLADDER Multiple shadowing g allstones in the gallbladder. No gallbladder distention, wall thickening, or p ericholecystic fluid. Gallbladder wall measures 3 mm. BILE DUCTS No intr a nor extra-hepatic biliary dilation. Common bile duct measures 3mm PANCR EAS: Visualized portions are normal. RIGHT KIDNEY: 10.6 cm Echogenicity: Normal Collecting System: No hydronephrosis Stones: None Cyst/Mass: None LEFT KIDNEY: 13.3 cm Echogenicity: Normal Collecting System: No hydro nephrosis Stones: None Cyst/Mass: None VESSELS: Aorta: Visualized po rtions are within normal size limits Inferior Vena Cava: Visualized portions a re normal Main Portal Vein: 1.1 cm, normal size with hepatopetal flow. FR EE FLUID: None IMPRESSION: Cholelithiasis without sonographic evidence of cholecystitis. Diffuse hepatic steatosis. Signed by: Vick Wick MD o n 10/18/2019 9:20 AM Dictated By: VICK WICK MD 9 Transcribed By: JONATHON on 10/18/19919 COPY TO: GANGA NEWELL MAMMOGRAPHY DIGITAL SCR [id number] 10:53:00 [place] [address] Patient Name: LIT RESENDIZ MR #: [id number] : 1950 Age/Sex: 68/F Req #: [id number] Adm Physician: Ordered by: GANGA NEWELL MD, MD Report #: [id number] Location: MAMMO Room/Bed: Procedure: [id number] MG/MAMMOGRAPHY DIGITAL SCR BILAT Exam Date: 02/28/19 Exam Time: 1019 REPORT STATUS: Signed #[id number] - MGSCRBIL #BILATERAL DIGITAL SCREENING MA MMOGRAM WITH CAD: 02/28/2019 CLINICAL: Routine screening. Comparison is m blanche to exam dated: 12/09/2017 mammogram - [facility]. The tissue of both breasts is predominantly fatty. Current study was also evaluated with a Computer Aided Detection (CAD) system. There are benign ca lcifications in both breasts. There also are benign lymph nodes in both breasts . There is a mole marker on the left breast. No significant masses, calc ifications, or other findings are seen in either breast. There has been no s ignificant interval change. IMPRESSION: BENIGN There is no mammographic e vidence of malignancy. A 1 year screening mammogram is recommended. The eduardo ent will be notified by letter of the results. VICK WICK M.D. kw/penrad:03/08/2019 12:41:52 [employer]: Nate Maddox)(M), [facility] letter sent: Compared to Prior B9 Mammogram BI-RADS: 2 Benign Dictated By: VICK WICK MD Electronically Si gned By: VICK WICK MD on 03/08/191240 Transcribed By: WHITNEY on 03/08/191240 COPY TO: GANGA NEWELL BASIC METABOLIC [id number] 23:55:00* Test Item Value Reference Range Interpretation Comments SODIUM (test code = NA) 141 mmol/L 136-145 N POTASSIUM (test code = K) 3.9 mmol/L 3.5-5.1 N CHLORIDE (test code = CL) 104 mmol/L 101-109 N CARBON DIOXIDE (test code = CO2) 29.5 mmol/L 21-32 N ANION GAP (test code = GAP) 11 mmol/L 10-20 N GLUCOSE (test code = GLU) 148 mg/dL 74-106 H BLOOD UREA NITROGEN (test code = BUN) 19 mg/dL 3-21 N GLOMERULAR FILTRATION RATE (test code = GFR) > 60 mL/min >=60 Estimated GFR by using Modified MDRD formula.Chronic kidney disease is defined as either kidney damageor GFR <60 mL/min/1.73 m2 for >3 months. CREATININE (test code = CREAT) 0.75 mg/dL 0.55-1.3 N BUN/CREATININE RATIO (test code = BUN/CREA) 25.3 10-20 H CALCIUM (test code = CA) 8.8 mg/dL 8.4-10.2 N [id number] 23:55:00* Test Item Value Reference Range Interpretation Comments TROPONIN-I (test code = TROPI) <0.015 ng/mL 0.00-0.056 N CBC W/O [id number] 23:38:00* Test Item Value Reference Range Interpretation Comments WHITE BLOOD CELL (test code = WBC) 7.3 K/mm3 4.5-12.5 N RED BLOOD CELL (test code = RBC) 4.74 mill/mm3 3.7-5.2 N HEMOGLOBIN (test code = HGB) 14.0 gram/dL 11.5-15.5 N HEMATOCRIT (test code = HCT) 42.3 % 36.0-46.0 N MEAN CELL VOLUME (test code = MCV) 89.2 fL 80-98 N MEAN CELL HGB (test code = MCH) 29.5 picogram 27.0-33.0 N MEAN CELL HGB CONCETRATION (test code = MCHC) 33.1 gram/dL 33.0-36. 0 N RED CELL DISTRIBUTION WIDTH (test code = RDW) 12.9 % 11.6-16. 2 N RED CELL DISTRIBUTION WIDTH SD (test code = RDW-SD) 42.4 fL 37 .0-51.0 N PLATELET COUNT (test code = PLT) 267 K/mm3 150-450 N MEAN PLATELET VOLUME (test code = MPV) 11.3 fL 6.7-11.0 H MAMMOGRAPHY DIGITAL SCR [id number] 15:04:00 [place] [id number] Patient Name: LIT RESENDIZ MR #: [id number] : 1950 Age/Sex: 67/F Req #: [id number] Adm Physician: Ordered by: REECE MILIAN, GANGA Sommers MD Report #: [id number] Location: MAMMO Room/Bed: Procedure: [id number] MG/MAMMOGRAPHY DIGITAL SCR BILAT Exam Date: 12/09/17 Exam Time: 1445 REPORT STATUS: Signed #[id number] - [id number] #BILATERAL DIGITAL SCREENING MA MMOGRAM WITH CAD: 12/09/2017 No prior exams were available for comparison. Cu rrent study contains 4 films. The tissue of both breasts is predominantly fa tty. Current study was also evaluated with a Computer Aided Detection (CAD) system. There are benign calcifications in both breasts. There also are dana ign lymph nodes in both breasts. There is a mole marker on the left breast. No significant masses, calcifications, or other findings are seen in either breast. IMPRESSION: BENIGN There is no mammographic evidence of maligna ncy. A 1 year screening mammogram is recommended. The patient will be notifi ed by letter of the results. Karel muller/evelin rad:12/28/2017 14:54:02 [employer]: Nate VALENCIA(R)(M), [facility] letter sent: Normal Exam Mammogram BI-RADS : 2 Benign Dictated By: KAREL OSORIO DO [id number] Transcribed By: WHITNEY on 12/28/17 [id number] COPY TO : GANGA NEWELL
== END 2019-11-17 15:15 | disposition home or self-care (01) ==
LOC: FSED 12:45
DX: M79.621 Pain in right upper arm (principal); M25.511 Pain in right shoulder; I10 Essential (primary) hypertension; E11.9 Type 2 diabetes mellitus without complications; E78.5 Hyperlipidemia, unspecified; K21.9 Gastro-esophageal reflux disease without esophagitis; E66.01 Morbid (severe) obesity due to excess calories
CPT/HCPCS: 73030; 93971 ×2; 99284; Q0162

== ENCOUNTER → 2020-05-01 | Day surgery (SDC) | payer MEDICARE, OTHER ==
[2020-03-01 15:21] LABS: BASOPHILS % 0.1 % (0.0-1.0); HEMATOCRIT 41.3 % (34.2-44.1); HEMOGLOBIN 13.4 g/dL (12.0-16.0); LYMPHOCYTES # (AUTO) 1.8 (1.0-3.2); LYMPHOCYTES % 22.8 % (18.0-39.1); MEAN CORPUSCULAR HEMOGLOBIN 28.3 pg (28-32); MEAN CORPUSCULAR HGB CONC 32.4 g/dL (31-35); MEAN CORPUSCULAR VOLUME 87.1 fL (81-99); MONOCYTES # (AUTO) 0.5 (0.2-0.8); NEUTROPHILS # (AUTO) 5.5 (2.1-6.9); NEUTROPHILS % 70.5 % (38.7-80.0); PLATELET COUNT 298 x10e3/uL (140-360); RED BLOOD COUNT 4.74 x10e6/uL (3.6-5.1); RED CELL DISTRIBUTION WIDTH 13.3 % (11.7-14.4)
[2020-03-01 15:38] LABS: ANION GAP 13.2 mmol/L (8-16); BLOOD UREA NITROGEN 13 mg/dL (7-26); BUN/CREATININE RATIO 20 (6-25); CALCIUM 9.3 mg/dL (8.4-10.2); CARBON DIOXIDE 27 mmol/L (22-29); CHLORIDE 106 mmol/L (98-107); CREATININE, SERUM 0.66 mg/dL (0.57-1.11); EST GLOMERULAR FILTRATION RATE > 60 ML/MIN (60-); GLUCOSE 104 mg/dL (74-118); POTASSIUM 4.2 mmol/L (3.5-5.1); SODIUM 142 mmol/L (136-145)
[2020-04-26 11:55] LABS: BASOPHILS % 0.3 % (0.0-1.0); HEMATOCRIT 40.6 % (34.2-44.1); HEMOGLOBIN 12.9 g/dL (12.0-16.0); LYMPHOCYTES # (AUTO) 1.3 (1.0-3.2); LYMPHOCYTES % 19.9 % (18.0-39.1); MEAN CORPUSCULAR HEMOGLOBIN 28.1 pg (28-32); MEAN CORPUSCULAR HGB CONC 31.8 g/dL (31-35); MEAN CORPUSCULAR VOLUME 88.5 fL (81-99); MONOCYTES # (AUTO) 0.4 (0.2-0.8); MONOCYTES % 5.4 % (4.4-11.3); NEUTROPHILS # (AUTO) 4.8 (2.1-6.9); NEUTROPHILS % 73.8 % (38.7-80.0); PLATELET COUNT 269 x10e3/uL (140-360); RED BLOOD COUNT 4.59 x10e6/uL (3.6-5.1); RED CELL DISTRIBUTION WIDTH 13.9 % (11.7-14.4)
[2020-04-26 12:12] LABS: ANION GAP 13.9 mmol/L (8-16); BLOOD UREA NITROGEN 13 mg/dL (7-26); BUN/CREATININE RATIO 18 (6-25); CALCIUM 9.2 mg/dL (8.4-10.2); CARBON DIOXIDE 24 mmol/L (22-29); CHLORIDE 105 mmol/L (98-107); CREATININE, SERUM 0.72 mg/dL (0.57-1.11); EST GLOMERULAR FILTRATION RATE > 60 ML/MIN (60-); GLUCOSE 282 mg/dL (74-118); POTASSIUM 3.9 mmol/L (3.5-5.1); SODIUM 139 mmol/L (136-145)
[~2020-05-01] MED LIST changes: +ATROPINE SULFATE 1 MG/ML VIAL ONE; +CEFAZOLIN SOD 1 GM/NS 50ML 100 ML IV ONE; +DEXAMETHASONE SOD PHOS INJ 4 MG/ML VIAL ONE; +EPINEPHRINE 1 MG/ML 30ML VIAL ONE; +FENTANYL CITRATE/PF 100MCG/2 ML INJ ONE; +KETOROLAC TROMETHAMINE 30 MG/ML VIAL ONE; +LABETALOL HCL 5 MG/ML 20ML VIAL ONE; +LIDOCAINE 2%/ EPINEPHRINE 20ML MDV ONE; +LIDOCAINE HCL 2% LOCAL INJ 5 ML SDV VIAL INJ ONE; +MIDAZOLAM HCL 2 MG/2 ML VIAL ONE; +NEOSTIGMINE 1 MG/ML 10ML VIAL ONE; +ONDANSETRON HCL INJ 2MG/ML 2ML 2 MG/ML VIAL ONE; +PROPOFOL IV EMULSION 10 MG/ML 20 ML VIAL ONE; +ROPIVACAINE 0.5% 5 MG/ML 30 ML SDV ONE; +SEVOFLURANE INHAL SOLN 250 ML PEN BTL ONE; +ULTRACET TABLE1 EACH PO; +ZOFRAN4 MG SL
[2020-05-01 15:50] VITALS: BP 156/88
== END | disposition home or self-care (01) ==
LOC: OR 09:01
PROVIDERS: ATTEND Specialist
DX: S43.431A Superior glenoid labrum lesion of right shoulder, initial encounter (principal); M75.111 Incomplete rotator cuff tear or rupture of right shoulder, not specified as traumatic; M19.011 Primary osteoarthritis, right shoulder; M65.811 Other synovitis and tenosynovitis, right shoulder; E11.9 Type 2 diabetes mellitus without complications; I10 Essential (primary) hypertension; X58.XXXA Exposure to other specified factors, initial encounter; Z88.2 Allergy status to sulfonamides; Z01.810 Encounter for preprocedural cardiovascular examination; Z01.812 Encounter for preprocedural laboratory examination; Z20.822 Contact with and (suspected) exposure to COVID-19; Z79.84 Long term (current) use of oral hypoglycemic drugs
CPT/HCPCS: 29824; 29826; 29828; 36415 ×3; 80048 ×2; 82948; 85025 ×2; 93005; J0461; J0690; J1100; J1885; J2001 ×2; J2250; J2405; J2704; J2710; J2795; J3010; J3490; U0002 ×2

== ENCOUNTER 2021-08-06 14:57 | Emergency (ER) | payer MEDICARE, OTHER ==
[~2021-08-06] VITALS: Ht 162.6 cm; Wt 83.0 kg
[~2021-08-06 14:57] MED LIST changes: -ATROPINE SULFATE 1 MG/ML VIAL ONE; -CEFAZOLIN SOD 1 GM/NS 50ML 100 ML IV ONE; -DEXAMETHASONE SOD PHOS INJ 4 MG/ML VIAL ONE; -EPINEPHRINE 1 MG/ML 30ML VIAL ONE; -FENTANYL CITRATE/PF 100MCG/2 ML INJ ONE; -KETOROLAC TROMETHAMINE 30 MG/ML VIAL ONE; -LABETALOL HCL 5 MG/ML 20ML VIAL ONE; -LIDOCAINE 2%/ EPINEPHRINE 20ML MDV ONE; -LIDOCAINE HCL 2% LOCAL INJ 5 ML SDV VIAL INJ ONE; -MIDAZOLAM HCL 2 MG/2 ML VIAL ONE; -NEOSTIGMINE 1 MG/ML 10ML VIAL ONE; -ONDANSETRON HCL INJ 2MG/ML 2ML 2 MG/ML VIAL ONE; -PROPOFOL IV EMULSION 10 MG/ML 20 ML VIAL ONE; -ROPIVACAINE 0.5% 5 MG/ML 30 ML SDV ONE; -SEVOFLURANE INHAL SOLN 250 ML PEN BTL ONE
[2021-08-06] MEDS ORDERED: ONDANSETRON HCL INJ 2MG/ML 2ML 2 MG/ML VIAL IV STA (15:46)
[2021-08-06] MEDS ORDERED: KETOROLAC TROMETHAMINE 30 MG/ML VIAL IV STA (15:46)
[2021-08-06] MEDS ORDERED: FAMOTIDINE 20 MG/2 ML VIAL IV STA (15:46)
[2021-08-06] MEDS ORDERED: SODIUM CHLORIDE 0.9% 1000ML 1,000 ML IV SCH (16:00)
[2021-08-06] MEDS ORDERED: ONDANSETRON HCL INJ 2MG/ML 2ML 2 MG/ML VIAL ONE (16:05)
[2021-08-06] MEDS ORDERED: FAMOTIDINE 20 MG/2 ML VIAL IV ONE (16:05)
[2021-08-06] MEDS ORDERED: KETOROLAC TROMETHAMINE 30 MG/ML VIAL ONE (16:05)
[2021-08-06] MEDS ORDERED: SODIUM CHLORIDE 0.9% 1000ML 1,000 ML ONE (16:05)
[2021-08-06] MEDS ORDERED: IOPAMIDOL 370 MG/ML 100 ML INFUS..BTL INJ ONE (16:22)
[2021-08-06] MEDS ORDERED: FAMOTIDINE40 MG PO (18:03)
== END 2021-08-06 18:17 | disposition home or self-care (01) ==
LOC: FSED 15:11
DX: R10.12 Left upper quadrant pain (principal); R11.0 Nausea; K21.9 Gastro-esophageal reflux disease without esophagitis; I10 Essential (primary) hypertension; E78.5 Hyperlipidemia, unspecified; E11.9 Type 2 diabetes mellitus without complications; G62.9 Polyneuropathy, unspecified; Z88.2 Allergy status to sulfonamides; Z88.8 Allergy status to other drugs, medicaments and biological substances; Z79.84 Long term (current) use of oral hypoglycemic drugs; Z79.899 Other long term (current) drug therapy
CPT/HCPCS: 74177; 80048; 80076; 81003; 82553; 84484; 85025; 93005; 99284; J1885; J2405; J7030; Q9967

== ENCOUNTER 2022-03-23 10:27 | Observation (INO) | payer MEDICARE, OTHER ==
[~2022-03-23] VITALS: Ht 162.6 cm; Wt 83.0 kg
[~2022-03-23 10:27] MED LIST changes: +FAMOTIDINE40 MG PO
[2022-03-23] MEDS ORDERED: NITROGLYCERIN 2% OINT 1 GM PKT TOP ONE (11:00)
[2022-03-23] MEDS ORDERED: ASPIRIN 81 MG CHEW TAB PO ONE (11:00)
[2022-03-23 11:34] LABS: BASOPHILS % 0.3 % (0.0-1.0); EOSINOPHILS % 0.2 % (0.0-6.0); HEMATOCRIT 45.9 % (34.2-44.1); HEMOGLOBIN 13.8 g/dL (12.0-16.0); LYMPHOCYTES % 17.4 % (18.0-39.1); MEAN CORPUSCULAR HEMOGLOBIN 27.8 pg (28-32); MEAN CORPUSCULAR HGB CONC 30.1 g/dL (31-35); MEAN CORPUSCULAR VOLUME 92.4 fL (81-99); MONOCYTES # (AUTO) 0.3 (0.2-0.8); MONOCYTES % 5.6 % (4.4-11.3); NEUTROPHILS # (AUTO) 4.4 (2.1-6.9); NEUTROPHILS % 76.3 % (38.7-80.0); PLATELET COUNT 233 x10e3/uL (140-360); RED BLOOD COUNT 4.97 x10e6/uL (3.6-5.1); RED CELL DISTRIBUTION WIDTH 14.1 % (11.7-14.4)
[2022-03-23 11:40] LABS: INR 0.87
[2022-03-23 11:41] LABS: PARTIAL THROMBOPLASTIN TIME 41.7 seconds (23.8-35.5)
[2022-03-23 11:45] LABS: ALANINE AMINOTRANSFERASE 15 IU/L (0-55); ALBUMIN 3.9 g/dL (3.5-5.0); ALKALINE PHOSPHATASE 69 IU/L (40-150); ANION GAP 13.6 mmol/L (8-16); BLOOD UREA NITROGEN 7 mg/dL (7-26); BUN/CREATININE RATIO 10 (6-25); CALCIUM 9.6 mg/dL (8.4-10.2); CARBON DIOXIDE 25 mmol/L (22-29); CHLORIDE 104 mmol/L (98-107); CREATINE KINASE 18 IU/L (29-168); CREATININE, SERUM 0.68 mg/dL (0.57-1.11); GLUCOSE 206 mg/dL (74-118); MAGNESIUM 1.7 MG/DL (1.3-2.1); POTASSIUM 3.6 mmol/L (3.5-5.1); SODIUM 139 mmol/L (136-145)
[2022-03-23] MEDS ORDERED: ONDANSETRON HCL INJ 2MG/ML 2ML 2 MG/ML VIAL IV PRN (13:15)
[2022-03-23] MEDS ORDERED: DEXTROSE 50% SYRINGE 50 ML IV PRN (13:15)
[2022-03-23] MEDS ORDERED: Morphine 2mg Syringe 2 MG/ML SYR IV PRN (13:15)
[2022-03-23] MEDS: FAMOTIDINE 20 MG/2 ML VIAL IV SCH (13:42)
[2022-03-23] MEDS ORDERED: POLYETHYLENE GLYCOL 3350 17 GM PACK PO PRN (14:30)
[2022-03-23] MEDS ORDERED: ACETAMINOPHEN 325 MG TAB PO PRN (14:30)
[2022-03-23] MEDS ORDERED: METOPROLOL TARTRATE INJ 1 MG/ML VIAL IV PRN (14:30)
[2022-03-23 16:26] LABS: CREATINE KINASE 18 IU/L (29-168)
[2022-03-23] MEDS: INSULIN LISPRO 100 UNIT/1 ML 3ML VIAL SQ SCH ×2 (16:30→21:00)
[2022-03-23] MEDS: DOCUSATE SODIUM 100 MG CAP PO SCH (16:50)
[2022-03-23] MEDS ORDERED: MAGNESIUM SULF 1GRAM/DEXTROSE 100 ML IV ONE (18:15)
[2022-03-23 20:18] LABS: CREATINE KINASE MB 0.6 ng/mL (0-5.0)
[2022-03-23 21:30] VITALS: BP 141/71
[2022-03-24 00:39] VITALS: BP 139/80
[2022-03-24] MEDS: FAMOTIDINE 20 MG/2 ML VIAL IV SCH (02:03)
[2022-03-24 05:17] LABS: BASOPHILS % 0.3 % (0.0-1.0); EOSINOPHILS % 0.3 % (0.0-6.0); HEMATOCRIT 45.8 % (34.2-44.1); HEMOGLOBIN 14.1 g/dL (12.0-16.0); LYMPHOCYTES # (AUTO) 1.6 (1.0-3.2); LYMPHOCYTES % 22.5 % (18.0-39.1); MEAN CORPUSCULAR HEMOGLOBIN 28.1 pg (28-32); MEAN CORPUSCULAR HGB CONC 30.8 g/dL (31-35); MEAN CORPUSCULAR VOLUME 91.2 fL (81-99); MONOCYTES # (AUTO) 0.4 (0.2-0.8); MONOCYTES % 5.5 % (4.4-11.3); NEUTROPHILS # (AUTO) 5.2 (2.1-6.9); PLATELET COUNT 270 x10e3/uL (140-360); RED BLOOD COUNT 5.02 x10e6/uL (3.6-5.1)
[2022-03-24 05:37] VITALS: BP 134/74
[2022-03-24 05:42] LABS: ALBUMIN 3.9 g/dL (3.5-5.0); ANION GAP 14.7 mmol/L (8-16); CALCIUM 9.7 mg/dL (8.4-10.2); CHOL/HDL RATIO 4.5 (3.0-3.6); CREATININE, SERUM 0.61 mg/dL (0.57-1.11); POTASSIUM 3.7 mmol/L (3.5-5.1)
[2022-03-24 06:08] LABS: PHOSPHORUS 3.9 MG/DL (2.3-4.7)
[2022-03-24 06:28] LABS: THYROID STIMULATING HORMONE 1.81 uIU/mL (0.350-4.940)
[2022-03-24 06:33] LABS: CREATINE KINASE MB 0.6 ng/mL (0-5.0)
[2022-03-24] MEDS: INSULIN LISPRO 100 UNIT/1 ML 3ML VIAL SQ SCH (07:30)
[2022-03-24 08:00] VITALS: BP 123/72
[2022-03-24 08:06] VITALS: BP 123/72
[2022-03-24] MEDS ORDERED: METFORMIN HCL 500 MG TAB PO SCH (08:15)
[2022-03-24] MEDS ORDERED: ASPIRIN 81 MG ENTERIC COATED PO SCH (09:00)
[2022-03-24] MEDS ORDERED: ASPIRIN EC81 MG PO (09:00)
[2022-03-24] MEDS ORDERED: CARVEDILOL 3.125 MG TAB PO SCH (09:00)
[2022-03-24] MEDS ORDERED: TRAMADOL/APAP 37.5MG-325MG TAB PO PRN (09:00)
[2022-03-24] MEDS ORDERED: LOSARTAN POTASSIUM 100 MG TAB PO SCH (09:00)
[2022-03-24] MEDS ORDERED: AMLODIPINE BESYLATE 10 MG TAB PO SCH (09:00)
[2022-03-24] MEDS ORDERED: PLAVIX75 MG PO (09:00)
[2022-03-24] MEDS ORDERED: PANTOPRAZOLE SOD 40 MG TABEC PO SCH (09:00)
[2022-03-24] MEDS ORDERED: HYDRALAZINE HCL 25 MG TAB PO SCH (09:00)
[2022-03-24] MEDS: DOCUSATE SODIUM 100 MG CAP PO SCH (09:00)
[2022-03-24] MEDS ORDERED: CLOPIDOGREL BISULFATE 75 MG TAB PO SCH (09:00)
[2022-03-24] MEDS ORDERED: SERTRALINE HCL 50 MG TAB PO SCH (09:00)
[2022-03-24] MEDS ORDERED: GLIPIZIDE 5 MG TAB ER PO SCH (09:00)
[2022-03-24] MEDS ORDERED: SIMVASTATIN 20 MG TAB PO SCH (21:00)
== END 2022-03-24 10:04 | disposition home or self-care (01) ==
LOC: ER 10:38 → ERHOLD 13:07 → MED/SURG 20:30
PROVIDERS: ADMIT Internal Medicine; ATTEND Internal Medicine
DX: E11.65 Type 2 diabetes mellitus with hyperglycemia (principal); E83.42 Hypomagnesemia; K21.9 Gastro-esophageal reflux disease without esophagitis; Z88.6 Allergy status to analgesic agent; Z88.2 Allergy status to sulfonamides; Z20.822 Contact with and (suspected) exposure to COVID-19; E78.2 Mixed hyperlipidemia; E11.69 Type 2 diabetes mellitus with other specified complication; Z82.49 Family history of ischemic heart disease and other diseases of the circulatory system; F32.A Depression, unspecified; E66.01 Morbid (severe) obesity due to excess calories; Z68.31 Body mass index [BMI] 31.0-31.9, adult; I45.10 Unspecified right bundle-branch block
CPT/HCPCS: 0223U; 36415 ×2; 70450; 71045; 80053 ×2; 80061; 82550 ×2; 82553 ×2; 82948 ×2; 83036; 83735 ×2; 83880; 84100; 84443; 84484 ×2; 85025 ×2; 85610; 85730; 93005; 94799; 99285; C9113; G0378 ×2; J3475

== ENCOUNTER 2023-10-19 11:03 | Emergency (ER) | payer MEDICARE, OTHER ==
[~2023-10-19] VITALS: Ht 160 cm; Wt 84.4 kg
[~2023-10-19 11:03] MED LIST changes: +ASPIRIN EC81 MG PO; +CEFDINIR300 MG PO; +PLAVIX75 MG PO
[2023-10-19 11:29] VITALS: TEMP 98.2
[2023-10-19] MEDS: HYDROCODONE/APAP 5MG-325MG TAB PO ONE (12:50)
[2023-10-19 13:30] VITALS: PULSE 60; RESP 16
[2023-10-19] MEDS ORDERED: ULTRAM 50MG50 MG PO (13:46)
[2023-10-19 14:08] VITALS: BP 144/83; PULSE 62; RESP 16; O2SAT 98
== END 2023-10-19 14:08 | disposition home or self-care (01) ==
LOC: ER 11:15
DX: R07.81 Pleurodynia (principal); W01.0XXA Fall on same level from slipping, tripping and stumbling without subsequent striking against object, initial encounter; Y93.01 Activity, walking, marching and hiking; Y92.89 Other specified places as the place of occurrence of the external cause; I10 Essential (primary) hypertension; E11.9 Type 2 diabetes mellitus without complications; E78.5 Hyperlipidemia, unspecified; K21.9 Gastro-esophageal reflux disease without esophagitis; F41.9 Anxiety disorder, unspecified; F32.A Depression, unspecified; E66.01 Morbid (severe) obesity due to excess calories
CPT/HCPCS: 71101; 99283

== ENCOUNTER → 2024-09-21 | Outpatient (RCR) | payer MEDICARE, OTHER ==
[~2024-09-21] MED LIST changes: +ULTRAM 50MG50 MG PO
== END ==
LOC: PT 09-12 12:41
PROVIDERS: ATTEND Specialist
DX: M17.0 Bilateral primary osteoarthritis of knee (principal)

== ENCOUNTER 2024-09-25 08:22 | Outpatient (RCR) | payer MEDICARE, OTHER | END 2024-10-22 | LOC: PT 08:22 | PROVIDERS: ATTEND Specialist | DX: M17.0 Bilateral primary osteoarthritis of knee (principal) ==